=== PATIENT | male | born 1995 | race Two or more races ===

== ENCOUNTER 2023-06-26 20:02 | Emergency (ER) | payer MEDICAID ==
[2023-06-26 20:05] VITALS: BP 121/67; PULSE 81; RESP 16; TEMP 98.2
[2023-06-26] MEDS ORDERED: DEXT 5% WATER + KCL 40MEQ/L 1,000 ML IV ONE (20:45)
== END 2023-06-26 23:14 | disposition home or self-care (01) ==
LOC: ER 20:02
DX: S02.2XXA Fracture of nasal bones, initial encounter for closed fracture (principal); S06.9XAA Unspecified intracranial injury with loss of consciousness status unknown, initial encounter; Y04.0XXA Assault by unarmed brawl or fight, initial encounter; Y93.89 Activity, other specified; Y92.89 Other specified places as the place of occurrence of the external cause; Y99.8 Other external cause status
CPT/HCPCS: 70486; 99284; J7060